=== PATIENT | male | born 1950 ===

== ENCOUNTER 2019-12-22 09:52 | Emergency (ER) | payer OTHER ==
[~2019-12-22] VITALS: Ht 167.6 cm; Wt 79.4 kg
[~2019-12-22 09:52] MED LIST: ISOPTIN SR120 MG PO; VERAPAMIL HCL240 M1 PO
== END 2019-12-22 13:01 | disposition home or self-care (01) ==
LOC: OB/ER 09:52 → ER 10:00
DX: J06.9 Acute upper respiratory infection, unspecified (principal)

== ENCOUNTER 2020-07-17 10:54 | Emergency (ER) | payer OTHER ==
[~2020-07-17] VITALS: Ht 167.6 cm; Wt 78.5 kg
[2020-07-17] MEDS ORDERED: NORFLEX100MG PO (14:52)
[2020-07-17] MEDS ORDERED: KETO10TA2 PO (14:52)
== END 2020-07-17 14:56 | disposition home or self-care (01) ==
LOC: ER 10:54
DX: M25.511 Pain in right shoulder (principal); M54.2 Cervicalgia

== ENCOUNTER 2022-07-06 09:54 | Emergency (ER) | payer OTHER ==
[~2022-07-06] VITALS: Ht 167.6 cm; Wt 78.5 kg
[~2022-07-06 09:54] MED LIST changes: +KETO10TA2 PO; +NORFLEX100MG PO
[2022-07-06] MEDS ORDERED: LOSARTAN POTAS100 MG PO (10:21)
[2022-07-06] MEDS ORDERED: ATORVASTATIN CA20 MG PO (10:21)
== END 2022-07-06 12:16 | disposition home or self-care (01) ==
LOC: ER 09:54
DX: M54.2 Cervicalgia (principal); I10 Essential (primary) hypertension

== ENCOUNTER 2022-09-23 10:25 | Emergency (ER) | payer OTHER ==
[~2022-09-23] VITALS: Ht 167.6 cm; Wt 78.5 kg
[~2022-09-23 10:25] MED LIST changes: +ATORVASTATIN CA20 MG PO; +LOSARTAN POTAS100 MG PO
== END 2022-09-23 17:13 | disposition home or self-care (01) ==
LOC: ER 10:25 → EDBD 10:29 → ER 17:13
DX: J20.9 Acute bronchitis, unspecified (principal)

== ENCOUNTER 2024-09-09 13:47 | Emergency (ER) | payer OTHER ==
[~2024-09-09] VITALS: Ht 167.6 cm; Wt 73.5 kg
[2024-09-09] MEDS ORDERED: KETOROLAC TROMETHAMINE 30 MG VIAL IM ONE (17:15)
[2024-09-09] MEDS ORDERED: ORPHENADRINE CITRATE 30 MG/ML AMPUL IM ONE (17:15)
[2024-09-09 17:53] LABS: HEMATOCRIT 45.3 % (39.0-48.0); HEMOGLOBIN 15.8 g/dL (13-16.00); MEAN CELL VOLUME 91.4 fL (80.0-100.00); MEAN CORPUSCULAR HEMOGLOBIN 31.8 pg (27.00-32.0); MEAN CORPUSCULAR HGB CONC 34.7 g/dl (32.0-36.0); PLATELET COUNT 198 K/uL (150-450); RED BLOOD COUNT 4.96 M/uL (4.00-6.00); RED CELL DISTRIBUTION WIDTH 14.3 % (11.5-14.5)
[2024-09-09 18:18] LABS: CALCIUM 9.7 mg/dL (8.5-10.1); CREATININE SERUM 0.84 mg/dL (0.70-1.30); GFR 89.82; POTASSIUM 4.42 mEq/L (3.5-5.1)
[2024-09-09 18:35] LABS: PH,URINE 6.5 (5.0-8.0); URINE APPEARANCE Clear; URINE BILIRRUBIN Negative (NEGATIVE); URINE BLOOD Negative; URINE COLOR Yellow; URINE GLUCOSE Negative (NEGATIVE); URINE KETONE Negative (NEGATIVE); URINE LEUKOCYTE Trace; URINE NITRATE Negative; URINE PROTEIN Negative (NEGATIVE)
[2024-09-09 18:39] LABS: URINE BACTERIA 76.8 uL (0.0-1933); URINE RBC 20.1 uL (0.0-20.8); URINE WBC 26.8 uL (0.0-23.2)
[2024-09-09 18:40] LABS: URINE CAST 0.76 uL (0.0-1.40); URINE EPITHELIAL CELLS 1.2 uL (0.0-38.8)
== END 2024-09-09 20:41 | disposition home or self-care (01) ==
LOC: ER 13:47
PROVIDERS: Emergency Medicine
DX: M54.9 Dorsalgia, unspecified (principal)
CPT/HCPCS: 36415; 74177; 96372; 99284; J1885; J2360; Q9965

== ENCOUNTER 2025-05-07 13:48 | Emergency (ER) | payer OTHER ==
[~2025-05-07] VITALS: Ht 167.6 cm; Wt 74.8 kg
[2025-05-07] MEDS ORDERED: TRAMADOL HCL 50 MG TABLET PO STA (16:42)
[2025-05-07 17:06] LABS: BASO % 0.5 % (0.1-1.2); EOS # 0.33 (0.04-0.54); EOS % 5.0 % (0.7-7.0); LYMPH # 1.59 (1.18-3.74); LYMPH % 23.9 % (19.3-53.1); MEAN PLATELET VOLUME 9.50 fl (9.4-12.4); MONO # 0.60 (0.24-0.82); MONO % 9.0 % (4.7-12.5); NEUT # 4.08 (1.56-6.13); NEUT % 61.4 % (34.0-71.1); RED CELL DISTRIBUTION WIDTH 12.6 % (11.6-14.4)
[2025-05-07 17:37] LABS: URINE APPEARANCE CLEAR; URINE COLOR YELLOW; URINE GLUCOSE NEGATIVE (NEGATIVE)
[2025-05-07 17:38] LABS: URINE BILIRRUBIN SMALL (NEGATIVE); URINE BLOOD NEGATIVE; URINE KETONE TRACE (NEGATIVE); URINE LEUKOCYTE NEGATIVE; URINE NITRATE NEGATIVE; URINE PROTEIN NEGATIVE (NEGATIVE); URINE RBC 0-3 /HPF; URINE UROBILINOGEN 0.2 E.U./dl
[2025-05-07 17:39] LABS: URINE BACTERIA FEW; URINE CRYSTALS FEW /HPF; URINE WBC 0-2 /hpf
[2025-05-07 17:41] LABS: ALT/SGPT 30.0 U/L (12-78); AST/SGOT 18.0 U/L (15-37); BILIRUBIN TOTAL 1.04 mg/dL (0.3-1.2); BUN CREA RATIO 25.0 (7.0-25.0); CREATININE SERUM 1.14 mg/dL (0.70-1.30); GFR 62.97; GLOBULINA 2.8 G/DL (2.4-3.5); GLUCOSE FASTING 160.0 mg/dL (65-100); OSMOLALITY SERUM 290.0 MOSM/KG (275-295)
== END 2025-05-07 19:35 | disposition home or self-care (01) ==
LOC: ER 13:48
PROVIDERS: General Practice
DX: N50.819 Testicular pain, unspecified (principal); N23 Unspecified renal colic; N20.9 Urinary calculus, unspecified; N20.0 Calculus of kidney; K57.30 Diverticulosis of large intestine without perforation or abscess without bleeding; I10 Essential (primary) hypertension